=== PATIENT | female | born 2000 | race Hispanic/Latino ===

== ENCOUNTER 2025-08-14 14:37 | Outpatient (CLI) | payer OTHER | END 2025-08-14 14:38 | disposition home or self-care (01) | LOC: BURRAD 14:37 → EDSTATUS 14:39 | PROVIDERS: ATTEND Preventive Medicine Public Health & General Preventive Medicine | DX: Z11.7 Encounter for testing for latent tuberculosis infection (principal) | CPT/HCPCS: 71046 ==